=== PATIENT | female | born 1995 | race Caucasian/White ===

== ENCOUNTER 2017-07-30 10:24 | Emergency (ER) | payer OTHER ==
[~2017-07-30] VITALS: Ht 167.6 cm; Wt 63.0 kg
[2017-07-30 10:58] LABS: HEMATOCRIT 35.5 % (36.0-46.0); MCH 28.6 PG (29.0-34.0); MCHC 32.4 G/DL (30.0-36.0); MCV 88.3 FL (83-99); MEAN PLAT.VOLUME 10.2 uM^3 (9.5-12.4); PLATELET COUNT 202 K/uL (156-360); RBC DIS.WIDTH-CV 12.6 % (11.8-14.6); RBC DIS.WIDTH-SD 40.9 % (39-53); RED BLOOD COUNT 4.02 M/uL (3.80-5.20); WHITE BLOOD COUNT 9.6 K/uL (4.1-10.2)
[2017-07-30 11:09] LABS: CHLORIDE 105 mEq/L (99-109); POTASSIUM 3.7 mEq/L (3.7-5.4); SODIUM 138 mEq/L (136-147)
[2017-07-30 11:11] LABS: GLUCOSE 89 mg/dL (70-99)
[2017-07-30 11:13] LABS: ANION GAP 8 MEQ/L (2-14); TOTAL BILIRUBIN 0.3 mg/dL (0.0-1.0)
[2017-07-30 11:15] LABS: ALKALINE PHOSPHATASE 40 IU/L (3-129); GFR ESTIMATE (CALCULATED) > 59 mL/min/
[2017-07-30 11:16] LABS: UREA NITROGEN (BUN) 11 mg/dL (9-23)
[2017-07-30 12:03] LABS: ADD MIUA? YES; BILIRUBIN NEGATIVE; BLOOD SMALL; COLOR YELLOW ((YELLOW)); GLUCOSE (STRIP) NEGATIVE; KETONES NEGATIVE; LEUKOCYTES SMALL; NITRITE POSITIVE; PROTEIN (STRIP) NEGATIVE; SPECIFIC GRAVITY 1.014 (1.000-1.030); UROBILINOGEN 0.2 MG/DL (0.2-1.0)
[2017-07-30 12:19] LABS: BACTERIA RARE /HPF; EPITHELIAL CELLS 1+ /HPF; MUCUS 2+ /LPF; UCUL ADDED? YES; WHITE BLOOD CELLS 30-40 /HPF (0-5)
[2017-07-30] MEDS ORDERED: NAPROSYN500 MG PO (12:43)
[2017-07-30] MEDS ORDERED: PYRIDIUM100 MG PO (12:43)
[2017-07-30] MEDS ORDERED: FLEXERIL10 MG PO (12:43)
[2017-07-30] MEDS ORDERED: BENTYL20 MG PO (12:43)
[2017-07-30] MEDS ORDERED: MACROBID100 MG PO (12:43)
[2017-07-30 13:18] VITALS: BP 111/69
== END 2017-07-30 13:22 | disposition home or self-care (01) ==
LOC: EME 10:24
PROVIDERS: Nurse Practitioner Family
DX: R10.32 Left lower quadrant pain (principal); S16.1XXA Strain of muscle, fascia and tendon at neck level, initial encounter; S40.011A Contusion of right shoulder, initial encounter; N39.0 Urinary tract infection, site not specified; K59.00 Constipation, unspecified; V44.6XXA Car passenger injured in collision with heavy transport vehicle or bus in traffic accident, initial encounter
CPT/HCPCS: 74020; 80053; 81003; 85027; 87077; 87086; 87186; 99281; 99285; J1885; J2405